=== PATIENT | female | born 1960 | race Hispanic/Latino ===

== ENCOUNTER 2017-11-08 16:21 | Inpatient (IN) | payer OTHER ==
--- NOTE | 2017-11-08 17:16 | C.PDOC ---
History Of Present Illness Patient brought to ED for psychiatric evaluation from home, apparently as per has not been behaving normally. Patient states she has PMHx of pituitary ademoma and metastatic breast CA, as well as cervical spinal stenosis. Records show PMHx of bipolar disorder with psychosis. Time Seen by Provider: 11/08/17 16:36 Chief Complaint (Nursing): Psychiatric Evaluation History Per: Patient Past Medical History Reviewed: Historical Data, Nursing Documentation, Vital Signs Vital Signs: Last Vital Signs Temp 99.2 F 11/08/17 16:26 Pulse 92 H 11/08/17 16:26 Resp 17 11/08/17 16:26 BP 164/97 H 11/08/17 16:26 Pulse Ox 97 11/08/17 18:39 - Medical History PMH: Anemia, Anxiety, Fractures Surgical History: Cholecystectomy - [facility] Procedures GROUP PSYCHOTHERAPY (10/05/15) INDIVIDUAL PSYCHOTHERAPY, SUPPORTIVE (10/05/15) MEDICATION MANAGEMENT (10/05/15) Family History: States: No Known Family Hx - Social History Hx Alcohol Use: No Hx Substance Use: No - Immunization History Hx Tetanus Toxoid Vaccination: (unk) Hx Influenza Vaccination: Yes Hx Pneumococcal Vaccination: (unk) Review Of Systems Constitutional: Negative for: Fever, Chills Cardiovascular: Negative for: Chest Pain Respiratory: Negative for: Shortness of Breath Gastrointestinal: Negative for: Nausea, Vomiting, Abdominal Pain Skin: Negative for: Rash Neurological: Positive for: Other (bizarre behavior ) Physical Exam - Physical Exam Appears: Well, Non-toxic Skin: Normal Color, Warm, Dry Oral Mucosa: Moist Cardiovascular: Rhythm Regular Respiratory: Normal Breath Sounds, No Rales, No Rhonchi, No Wheezing Neurological/Psych: Oriented x3, Other (bizarre affect, paranoid with flight of ideas) ED Course And Treatment O2 Sat by Pulse Oximetry: 97 Disposition - Disposition Disposition Time: 19:00 Condition: STABLE Forms: [employer] (German) - Clinical Impression Clinical Impression: Bipolar disorder Physician Patient Turnover Patient Signed Over To: Raquel Colon Handoff Comments: pending labs, UA, UDS
[2017-11-08 19:10] LABS: BASO # 0.1 K/uL (0.0-0.2); BASO % 0.9 % (0.0-2.0); EOS # 0.3 K/uL (0.0-0.7); EOS % 5.1 % (0.0-4.0); HEMOGLOBIN 12.8 g/dL (11.0-16.0); LYMPH # 1.7 K/uL (1.0-4.3); LYMPH % 30.8 % (20.0-40.0); MEAN CELL VOLUME 89.6 fL (81.0-99.0); MEAN CORPUSCULAR HEMOGLOBIN 30.4 pg (27.0-31.0); MEAN PLATELET VOLUME 8.9 fL (7.2-11.7); MONO # 0.5 K/uL (0.0-0.8); MONO % 8.4 % (0.0-10.0); NEUT # 2.9 K/uL (1.8-7.0); NEUT % 54.8 % (50.0-75.0); NRBC % 0.1 % (0.0-2.0); RBC 4.19 Mil/uL (3.80-5.20); WHITE BLOOD COUNT 5.4 K/uL (4.8-10.8)
[2017-11-08 19:11] LABS: ALB/GLOB RATIO 1.4 (1.0-2.1); ALT/SGPT 25 U/L (9-52); AST/SGOT 24 U/L (14-36); BLOOD UREA NITROGEN 21 mg/dL (7-17); CALCIUM 9.5 mg/dl (8.6-10.4); GFR AFRICAN-AMERICAN > 60; GFR NON-AFRICAN AMERICAN > 60
[2017-11-08 21:23] VITALS: O2SAT 97
[2017-11-08 21:28] LABS: BARBITURATES, UR NEGATIVE (NEGATIVE); BENZODIAZEPINES, UR NEGATIVE (NEGATIVE); OPIATES, UR NEGATIVE (NEGATIVE); PHENCYCLIDINE, UR NEGATIVE (NEGATIVE)
[2017-11-08 21:56] LABS: URINE BILIRUBIN NEGATIVE (NEGATIVE); URINE BLOOD NEGATIVE (NEGATIVE); URINE CLARITY Clear (Clear); URINE COLOR Colorless (YELLOW); URINE GLUCOSE (UA) NORMAL (Normal); URINE LEUKOCYTE ESTERASE NEG Leu/uL (Negative); URINE PROTEIN NEGATIVE (NEGATIVE); URINE UROBILINOGEN NORMAL mg/dL (0.2-1.0)
[2017-11-08] MEDS: Oxymetazoline 0.05% Nasal Spray (30 ml) NS SCH (23:08)
--- NOTE | 2017-11-09 02:06 | PCM.BM ---
<Latisha Ng - Last Filed: 11/09/17 02:01> Treatment Plan Problems - Problems identified on initial assessmt Depression Date Initiated: 11/08/17 Time Initiated: 21:45 Assessment reference: NA Status: Active Treatment assets and liabiliti Patient Assests: good support system Patient Liabilities: poor support system, relationship conflicts ("My is a homosexual"), substance abuse (Oxycodone), medical problems (Spinal surgery ) - Milieu Protocol Maintain good personal hygiene: daily Encourage regular showers, daily Remind patient to perform daily oral care, every shift Assist patient to perform ADL's Conduct patient checks and document Observation sheet: Q15 minutes Maintain personal safety: every shift Educate patient to report safety concerns to staff, every shift Monitor environment for contraband/sharps Medication safety: Monitor for expected outcome, potential side effects: every shift, Assess barriers to learning: every shift, Assess readiness for medication education: every shift <Kell Huggins - Last Filed: 11/10/17 11:13> Family Contact Family involvement: Family/SO is involved Family contact: Patient declines to allow family contact at present - Goals for Treatment Patient goals for treatment: "I have to contact my attorney law clerk." Discharge/Continuing Care - Education Needs Education Needs: Patient Medication, Patient Coping Skills - Discharge Discharge Criteria: Tolerates medication w/o severe side effects, Reduction of target symptoms Discharge to:: Home, With Family - Treatment Team Participation Discussed with Family/SO: No Was Patient/Family/SO present at Treatment Team Meeting: Yes <Mireya Norwood - Last Filed: 11/10/17 11:19> - Diagnosis (1) Schizoaffective disorder Status: Acute Interventions: 11/10/17 11:19 * Assess/adjust medications daily and /or as needed * See patient on an individual basis 7x/week to assess status of hallucinations * Discuss risks, benefits, side effects and alternatives of medications *
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
[2017-11-09] MEDS: Oxymetazoline 0.05% Nasal Spray (30 ml) NS SCH ×2 (10:47→23:09)
[2017-11-10] MEDS: Oxymetazoline 0.05% Nasal Spray (30 ml) NS SCH ×2 (09:55→21:57)
--- NOTE | 2017-11-10 09:56 | PCM.PYCHPN ---
Psychiatric Progress Note - Psychiatric Progress Note Patient seen today, length of contact: 15 min Patient Chief Complaint: 'I am feeling fine.' Problems Identified/Issues Discussed: Patient seen and evaluated, chart reviewed and discussed with the nurse. Patient remained disorganized and internally preoccupied. She appeared to have loose associations and remained paranoid and delusional. She reports irritability and agitation but remained isolated, confined and withdrawn. Patient is compliant with medications and denies any side effects. Symptoms are improving but needs more time to stabilize. Support and psychoeducation given. Medication Change: Yes Medical Record Reviewed: Yes Mental Status Examination - Cognitive Function Orientation: Person, Place, Situation, Time Memory: Intact Attention: WNL Concentration: Poor Association: Loose Fund of Knowledge: Poor - Mood Mood: Anxious - Affect Affect: Broad - Formal Thought Process Formal Thought Process: Delusions, Paranoia, Loosening of associations, Flight of ideas, Circumstantial - Suicidal Ideation Suicidal Ideation: No - Homicidal Ideation Homicidal Ideation: No Goal/Treatment Plan - Goal/Treatment Plan Need for Continued Stay: Severe depression anxiety, Severe functional impairment Progress Toward Problem(s) and Goals/Treatment Plan: Schizoaffective disorder bipolar type r/o Bipolar disorder most recent episode manic severe with psychotic features CBT Psychoeducation Individual therapy, group therapy, pharmacotherapy, supportive therapy d/c Haldol 5 mg by mouth twice a day Start prolixin 5 mg PO BID Cogentin 1 mg by mouth twice a day Trazodone 50 mg by mouth daily at bedtime Klonopin 0.5 mg by mouth twice a day Ativan 1 mg by mouth when necessary agitation Opioid use disorder severe CBT Psychoeducation Supportive therapy, individual therapy Use [place] for abstinence Opioid withdrawal CBT Psychoeducation Supportive therapy, individual therapy Clonidine when necessary Methadone taper Stimulent use disorder d/c Adderall Ativan 1 mg PO Q 6 hr prn Metastatic breast cancer Monitor for signs and symptoms - Smoking Cessation Smoking Cessation Initiated: No
[2017-11-11] MEDS: Oxymetazoline 0.05% Nasal Spray (30 ml) NS SCH ×3 (09:17→21:58)
--- NOTE | 2017-11-11 14:11 | PCM.PYCHPN ---
Psychiatric Progress Note - Psychiatric Progress Note Patient seen today, length of contact: 15 min Problems Identified/Issues Discussed: Patient was seen. Chart was reviewed important content noted. Nurse input received that she is not compliant with medication. Patient is refusing meds. She is delusional. Pt has paranoid delusions regarding her . Patient slept well and is eating well. Denies suicidal or homicidal ideations. Patient does not report hallucinations. Patient needs more time to stabilize. DSM 5 Symptoms Update: Schizoaffective disorder bipolar type r/o Bipolar disorder most recent episode manic severe with psychotic features Medication Change: Yes Medical Record Reviewed: Yes Mental Status Examination - Cognitive Function Orientation: Person, Place, Situation, Time Memory: Intact Attention: WNL Concentration: Poor Association: Loose Fund of Knowledge: Poor Decription of patient's judgement and insights: poor/poor - Mood Mood: Anxious - Affect Affect: Broad - Speech Speech: Appropriate - Formal Thought Process Formal Thought Process: Delusions, Paranoia, Loosening of associations, Flight of ideas, Circumstantial Psychotic Thoughts and Behaviors: positive paranoid delusions - Suicidal Ideation Suicidal Ideation: No Plan: denied - Homicidal Ideation Homicidal Ideation: No Plan: denied Goal/Treatment Plan - Goal/Treatment Plan Need for Continued Stay: Severe depression anxiety, Discharge may exacerbated symptoms, Severe functional impairment Progress Toward Problem(s) and Goals/Treatment Plan: d/c Prolixin because pt refused to take it. D/c cogentin Start Abilify 2 mg po daily. Medication benefit, side effects discussed with the pt. she verbalized understanding. Psychoeducation Supportive therapy provided Therapy in milieu Estimated Date of D/C: 11/16/17
[2017-11-12] MEDS: Oxymetazoline 0.05% Nasal Spray (30 ml) NS SCH ×3 (09:20→21:47)
--- NOTE | 2017-11-12 17:04 | PCM.PYCHPN ---
Psychiatric Progress Note - Psychiatric Progress Note Patient seen today, length of contact: 15 min Patient Chief Complaint: "I'm feeling little better" Problems Identified/Issues Discussed: Patient was seen. Chart was reviewed important content noted. Nurse input received. Patient is still delusional and refusing to take her meds. Patient slept well and is eating well. Denies suicidal or homicidal ideations. Patient does not report hallucinations. Patient needs more time to stabilize. DSM 5 Symptoms Update: Schizoaffective d/o, r/o Bipolar disorder with psychotic features Medication Change: No Medical Record Reviewed: Yes Mental Status Examination - Cognitive Function Orientation: Person, Place, Situation, Time Memory: Intact Attention: WNL Concentration: Poor Association: Loose Fund of Knowledge: Poor Decription of patient's judgement and insights: poor/poor Addtional comments: Pt appeared disheveled and walking with walker - Mood Mood: Anxious - Affect Affect: Broad - Speech Speech: Appropriate - Formal Thought Process Formal Thought Process: Delusions, Paranoia, Loosening of associations, Flight of ideas, Circumstantial Psychotic Thoughts and Behaviors: positive paranoid delusions - Suicidal Ideation Suicidal Ideation: No Plan: denied - Homicidal Ideation Homicidal Ideation: No Plan: Denied Goal/Treatment Plan - Goal/Treatment Plan Need for Continued Stay: Severe depression anxiety, Discharge may exacerbated symptoms, Severe functional impairment Progress Toward Problem(s) and Goals/Treatment Plan: Abilify 2 mg po daily. Medication benefit, side effects discussed with the pt. she verbalized understanding. Psychoeducation Supportive therapy provided Therapy in milieu Estimated Date of D/C: 11/16/17
[2017-11-13] MEDS: Oxymetazoline 0.05% Nasal Spray (30 ml) NS SCH ×3 (09:02→22:38)
--- NOTE | 2017-11-13 10:42 | PCM.PYCHPN ---
Psychiatric Progress Note - Psychiatric Progress Note Patient seen today, length of contact: 15 min Patient Chief Complaint: 'I am feeling fine.' Problems Identified/Issues Discussed: Patient seen and evaluated, chart reviewed and discussed with the nurse. Today patient appears more organized and less delusional than before. She still reports irritability and depressed mood. She still has loose associations but she is in process of improvement. She remained isolated, confined and withdrawn. Patient is compliant with medications and denies any side effects. Symptoms are improving but needs more time to stabilize. Support and psychoeducation given. Medication Change: Yes (stop prolixin, start abilify) Medical Record Reviewed: Yes Mental Status Examination - Cognitive Function Orientation: Person, Place, Situation, Time Memory: Intact Attention: WNL Concentration: Poor Association: Loose Fund of Knowledge: Poor - Mood Mood: Anxious - Affect Affect: Broad - Speech Speech: Appropriate - Formal Thought Process Formal Thought Process: Delusions, Paranoia, Loosening of associations, Flight of ideas, Circumstantial - Suicidal Ideation Suicidal Ideation: No - Homicidal Ideation Homicidal Ideation: No Goal/Treatment Plan - Goal/Treatment Plan Need for Continued Stay: Severe depression anxiety, Discharge may exacerbated symptoms, Severe functional impairment Progress Toward Problem(s) and Goals/Treatment Plan: Schizoaffective disorder bipolar type r/o Bipolar disorder most recent episode manic severe with psychotic features CBT Psychoeducation Individual therapy, group therapy, pharmacotherapy, supportive therapy d/c prolixin 5 mg PO BID Start Abilify 2 mg PO Daily Cogentin 1 mg by mouth twice a day Trazodone 50 mg by mouth daily at bedtime d/c Klonopin 0.5 mg by mouth twice a day Ativan 1 mg by mouth when necessary agitation Opioid use disorder severe CBT Psychoeducation Supportive therapy, individual therapy Use [place] for abstinence Opioid withdrawal CBT Psychoeducation Supportive therapy, individual therapy Clonidine when necessary Methadone taper Stimulent use disorder d/c Adderall Ativan 1 mg PO Q 6 hr prn Metastatic breast cancer Monitor for signs and symptoms Estimated Date of D/C: 11/16/17
[2017-11-14] MEDS: Oxymetazoline 0.05% Nasal Spray (30 ml) NS SCH ×3 (06:06→22:00)
--- NOTE | 2017-11-14 10:02 | PCM.PYCHPN ---
Psychiatric Progress Note - Psychiatric Progress Note Patient seen today, length of contact: 15 min Patient Chief Complaint: 'I am feeling better.' Problems Identified/Issues Discussed: Patient seen and evaluated, chart reviewed and discussed with the nurse. Today patient appears more organized and less irritable. She has started coming out of her room but she remains isolative. Patient is partially compliant with medications and refusing medications. Symptoms are improving but needs more time to stabilize. Support and psychoeducation given. Medication Change: Yes (start haldol, start cogentin) Medical Record Reviewed: Yes Mental Status Examination - Cognitive Function Orientation: Person, Place, Situation, Time Memory: Intact Attention: WNL Concentration: Poor Association: WNL Fund of Knowledge: Poor - Mood Mood: Anxious - Affect Affect: Broad - Speech Speech: Appropriate - Formal Thought Process Formal Thought Process: Paranoia - Suicidal Ideation Suicidal Ideation: No - Homicidal Ideation Homicidal Ideation: No Goal/Treatment Plan - Goal/Treatment Plan Need for Continued Stay: Severe depression anxiety, Severe functional impairment Progress Toward Problem(s) and Goals/Treatment Plan: Schizoaffective disorder bipolar type r/o Bipolar disorder most recent episode manic severe with psychotic features CBT Psychoeducation Individual therapy, group therapy, pharmacotherapy, supportive therapy Start Haldol 2 mg by mouth twice a day D/C Abilify 2 mg po Daily Cogentin 1 mg by mouth twice a day Trazodone 50 mg by mouth daily at bedtime Ativan 1 mg by mouth when necessary agitation Opioid use disorder severe CBT Psychoeducation Supportive therapy, individual therapy Use [place] for abstinence Opioid withdrawal CBT Psychoeducation Supportive therapy, individual therapy Clonidine when necessary Methadone taper Stimulent use disorder d/c Adderall Ativan 1 mg PO Q 6 hr prn Metastatic breast cancer Monitor for signs and symptoms Estimated Date of D/C: 11/16/17 - Smoking Cessation Smoking Cessation Initiated: No
[2017-11-14] MEDS: Aluminum Hydroxide/Magnesium Hydroxide Susp (30 mL) PO PRN (16:22)
[2017-11-15] MEDS: Aluminum Hydroxide/Magnesium Hydroxide Susp (30 mL) PO PRN (07:44)
[2017-11-15] MEDS: Oxymetazoline 0.05% Nasal Spray (30 ml) NS SCH ×3 (07:44→23:27)
--- NOTE | 2017-11-15 14:35 | PCM.PYCHPN ---
Psychiatric Progress Note - Psychiatric Progress Note Patient seen today, length of contact: 15 min Patient Chief Complaint: 'I am feeling better.' Problems Identified/Issues Discussed: Patient seen and evaluated, chart reviewed and discussed with nurse. Patient remained disorganized and internally preoccupied. She appeared to have loose associations and remained paranoid and delusional. She reports irritability and agitation but remained isolated, confined, and withdrawn. She has been sleeping a lot recently and hardly leaves her room. Reports feeling tired all the time. She is still using a walker when walking around. Patient is compliant with medications and denies any side effects. Symptoms are improving but needs more time to stabilize. Support and psychoeducation given. Medication Change: Yes (start haldol, start cogentin) Medical Record Reviewed: Yes Mental Status Examination - Cognitive Function Orientation: Person, Place, Situation, Time Memory: Intact Attention: WNL Concentration: Poor Association: WNL Fund of Knowledge: Poor - Mood Mood: Anxious - Affect Affect: Broad - Speech Speech: Appropriate - Formal Thought Process Formal Thought Process: Paranoia - Suicidal Ideation Suicidal Ideation: No - Homicidal Ideation Homicidal Ideation: No Goal/Treatment Plan - Goal/Treatment Plan Need for Continued Stay: Severe depression anxiety, Severe functional impairment Progress Toward Problem(s) and Goals/Treatment Plan: Schizoaffective disorder bipolar type r/o Bipolar disorder most recent episode manic severe with psychotic features CBT Psychoeducation Individual therapy, group therapy, pharmacotherapy, supportive therapy Start Haldol 2 mg by mouth twice a day D/C Abilify 2 mg po Daily Cogentin 1 mg by mouth twice a day Trazodone 50 mg by mouth daily at bedtime Ativan 1 mg by mouth when necessary agitation Opioid use disorder severe CBT Psychoeducation Supportive therapy, individual therapy Use [place] for abstinence Opioid withdrawal CBT Psychoeducation Supportive therapy, individual therapy Clonidine when necessary Methadone taper Stimulent use disorder d/c Adderall Ativan 1 mg PO Q 6 hr prn Metastatic breast cancer Monitor for signs and symptoms Estimated Date of D/C: 11/16/17
[2017-11-16 06:17] VITALS: BP 113/67; PULSE 63; RESP 19; TEMP 98
[2017-11-16] MEDS: Aluminum Hydroxide/Magnesium Hydroxide Susp (30 mL) PO PRN (09:06)
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
[2017-11-16] MEDS: Oxymetazoline 0.05% Nasal Spray (30 ml) NS SCH (10:41)
== END 2017-11-16 11:24 | disposition home or self-care (01) | DRG 885 ==
LOC: C.ER 16:21 → C.5E 20:26
PROVIDERS: ADMIT Psychiatry & Neurology Psychiatry; ATTEND Psychiatry & Neurology Psychiatry
PROC: GZ3ZZZZ Medication Management (ICD-10-PCS; principal; 2017-11-08)
PROC: GZHZZZZ Group Psychotherapy (ICD-10-PCS; 2017-11-08)
PROC: GZ56ZZZ Individual Psychotherapy, Supportive (ICD-10-PCS; 2017-11-08)
PROC: HZ86ZZZ Medication Management for Substance Abuse Treatment, Clonidine (ICD-10-PCS; 2017-11-08)
PROC: HZ89ZZZ Medication Management for Substance Abuse Treatment, Other Replacement Medication (ICD-10-PCS; 2017-11-08)
PROC: HZ46ZZZ Group Counseling for Substance Abuse Treatment, Psychoeducation (ICD-10-PCS; 2017-11-08)
DX: F25.0 Schizoaffective disorder, bipolar type (principal); F11.23 Opioid dependence with withdrawal; F31.2 Bipolar disorder, current episode manic severe with psychotic features; C79.9 Secondary malignant neoplasm of unspecified site; Z91.14 Patient's other noncompliance with medication regimen; Z85.3 Personal history of malignant neoplasm of breast; Z90.13 Acquired absence of bilateral breasts and nipples; Z79.899 Other long term (current) drug therapy; Z88.0 Allergy status to penicillin